=== PATIENT | female | born 1980 | race African-American/Black ===

== ENCOUNTER 2016-12-24 20:57 | Emergency (ER) | payer MEDICAID ==
[~2016-12-24] VITALS: Ht 165.1 cm; Wt 68.0 kg
[~2016-12-24 20:57] MED LIST: DEPAKOTE; SERAQUEL
[2016-12-25] MEDS ORDERED: LIDOCAINE HCL 1%/EPI 1:200,000 30 ML VIAL MC ONE (06:30)
[2016-12-25] MEDS ORDERED: BACITRACIN ZINC OINT UDPKT TOP ONE (06:30)
[2016-12-25 08:50] VITALS: BP 121/74
== END 2016-12-25 08:50 | disposition home or self-care (01) ==
LOC: ER 21:13
DX: L02.411 Cutaneous abscess of right axilla (principal)
CPT/HCPCS: 10060; 99283; Z7610

== ENCOUNTER 2016-12-28 14:25 | Emergency (ER) | payer MEDICAID ==
[~2016-12-28] VITALS: Ht 160 cm; Wt 73.0 kg
[2016-12-28] MEDS ORDERED: KETOROLAC 60MG/2ML VIAL IM ONE (23:15)
[2016-12-29 00:23] VITALS: BP 121/78
== END 2016-12-29 00:30 | disposition home or self-care (01) ==
LOC: ER 18:03
DX: Z48.00 Encounter for change or removal of nonsurgical wound dressing (principal); L02.411 Cutaneous abscess of right axilla; Z88.0 Allergy status to penicillin; F17.210 Nicotine dependence, cigarettes, uncomplicated
CPT/HCPCS: 96372; 99283; J1885; Z7610